=== PATIENT | male | born 1990 | race Caucasian/White ===

== ENCOUNTER 2020-07-10 15:27 | Emergency (ER) | payer MEDICAID, SELFPAY ==
[2020-07-10] VITALS (9 sets, daily range): BP systolic 97–136; BP diastolic 63–91; PULSE 53–89; RESP 18; TEMP 36.6–36.8; O2SAT 93–99; BMI 26.4
--- NOTE | 2020-07-10 15:28 | HMH.EDGENADL ---
ED Disposition Clinical Impression: Cellulitis Qualifiers: Site of cellulitis: extremity Site of cellulitis of extremity: lower extremity Laterality: right Qualified Code(s): L03.115 - Cellulitis of right lower limb Disposition: Left Against Medical Advice Condition on Discharge: Good Referrals: Christina Crow APRN [Primary Care Provider] - Time of Disposition: 17:48 - Critical Care Critical Care Time: No Attestation: On , the high probability of a clinically significant, sudden or life threatening deterioration of the following system(s) required my full and direct attention, intervention and personal management. The time I documented below is in addition to time spent performing reported procedures but includes the following listed in this critical care notation. Medical Decision Making - Medical Records Medical records reviewed: Yes: I reviewed the patient's medical records. - Ivan Inquiry Pt receiving controlled substance: No Vital Signs: 07/10/20 15:28 07/10/20 16:30 Temperature 98 F Temperature Source Oral Pulse Rate 65 Pulse Rate [Right Radial] 89 Respiratory Rate 18 Blood Pressure 119/64 Blood Pressure [Right Arm] 136/91 H Blood Pressure Mean 82 Blood Pressure Mean [Right Arm] 106 Blood Pressure Source [Right Arm] Automatic Cuff Blood Pressure Position [Right Arm] Sitting 02 Sat by Pulse Oximetry 98 95 Oxygen Delivery Method Room Air - Lab Data Lab results reviewed: Yes: I reviewed the patient's lab results. Lab Results 07/10/20 16:00: WBC 5.7, RBC 4.79, Hgb 15.5, Hct 44.0, MCV 91.8, MCH 32.3 H, MCHC 35.2, RDW 13.5, Plt Count 258, MPV 8.2, Neut % (Auto) 54.6, Lymph % (Auto) 28.6, [place] % (Auto) 9.3, Eos % (Auto) 6.7, Baso % (Auto) 0.8, Neut # (Auto) 3.1, Lymph # (Auto) 1.6, [place] # (Auto) 0.5, Eos # (Auto) 0.4, Baso # (Auto) 0.0 07/10/20 16:00: Sodium 136, Potassium 3.9, Chloride 105, Carbon Dioxide 26, Anion Gap 8.9, BUN 8 L, Creatinine 0.80, Estimated Creat Clear 175, Estimated GFR 114, Est GFR ( Amer) 138, Glucose 84, Calcium 9.8, Total Bilirubin 0.7, AST 155 H, ALT 131 H, Alkaline Phosphatase 137 H, Total Protein 8.2, Albumin 4.6, Globulin 3.6 H, Albumin/Globulin Ratio 1.3 07/10/20 16:00: Lactate 0.7 Result diagrams: 07/10/20 16:00 07/10/20 16:00 Orders (Tests/Meds): ED MEDICATIONS Generic Name Dose Route Start Last Admin Trade Name Freq PRN Reason Stop Dose Admin Piperacillin Sod/Tazobactam 100 mls @ 200 mls/hr 07/10/20 16:00 07/10/20 16:40 Sod 4.5 gm/ Sodium Chloride IV 07/24/20 15:59 200 mls/hr Q8H MORENO Administration Protocol Vancomycin HCl 1,500 mg/ 250 mls @ 125 mls/hr 07/10/20 17:45 Sodium Chloride IV 07/24/20 17:44 Q8H MOREON Protocol Miscellaneous 1 each 07/10/20 16:30 07/10/20 17:35 Vancomycin Consult Request * 08/09/20 16:29 1 each CONSULT PHARMACY M[facility]ENO Administration Discontinued Medications Generic Name Dose Route Start Last Admin Trade Name Freq PRN Reason Stop Dose Admin Vancomycin HCl 1,500 mg/ 250 mls @ 125 mls/hr 07/10/20 15:47 07/10/20 16:28 Sodium Chloride IV 07/10/20 17:46 Not Given ONCE ONE Protocol Vancomycin HCl 2,000 mg/ 250 mls @ 125 mls/hr 07/10/20 16:17 07/10/20 17:36 Sodium Chloride IV 07/10/20 18:16 Not Given ONCE ONE Protocol ORDERS Category Date Time Status Covid-19 Nasal PCR ([facility]) Routine Lab 07/10/20 16:25 Received Blood Culture Stat Micro 07/10/20 16:00 Received - US Data US Images: Lower Extremity ED US Reviewed: Yes: I have reviewed the patient's US results Preliminary Findings: Normal/NAD Medical Decision Narrative: 29yo M with significant cellulitis of the right lower extremity presents for evaluation. Patient's lower extremity exam is impressive for firmness, exquisite tenderness, decreased range of motion. Patient treated with antibiotics in the emergency department. Discussed transfer versus admission. Was able to locat
--- NOTE | 2020-07-10 15:52 | CA_ITS ---
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: CN Indications pain, swelling of right calf with redness, Vein Imaging CFV (R): compressive, spontaneous, phasic, augmentation FEM (R): compressive, spontaneous, phasic, augmentation POP (R): compressive, spontaneous, phasic, augmentation DFV (R): compressive, spontaneous, phasic, augmentation PTV (R): compressive, spontaneous, phasic, augmentation GSV (R): compressive, spontaneous, phasic, augmentation SSV (R): compressive, spontaneous, phasic, augmentation Peroneals (R):compressive, spontaneous, phasic, augmentation Findings Color flow duplex demonstrates no evidence of DVT of the following right lower extremity Vein:Common Femoral Vein, Femoral Vein, Popliteal Vein, Posterior Tibial Veins, Peroneal Veins, Deep Femoral Vein. Conclusion no evidence of DVT Electronically signed by : Adry Orantes, 07/14/2020 16:52:27
--- NOTE | 2020-07-10 16:04 | PC.NURSE ---
cv lab staff at
[2020-07-10 16:09] LABS: Basophils % 0.8 % (0.1-2.0); Eosinophils # 0.4 K/mm3 (0.0-0.4); Eosinophils % 6.7 % (0.1-12.0); Hemoglobin 15.5 g/dL (14.1-18.0); Lymphocytes # 1.6 K/mm3 (0.7-4.5); Lymphocytes % 28.6 % (10-50); Mean Corpuscular HGB Conc 35.2 g/dL (31.8-35.4); Mean Corpuscular Hemoglobin 32.3 pg (27.0-31.2); Mean Corpuscular Volume 91.8 fl (80-94); Mean Platelet Volume 8.2 fl (7.4-10.4); Monocytes # 0.5 K/mm3 (0.1-1.0); Monocytes % 9.3 % (1.7-9.3); Neutrophils # 3.1 K/mm3 (1.8-7.8); Neutrophils % 54.6 % (37.0-80.0); Platelet Count 258 K/mm3 (142-424); Red Blood Count 4.79 M/mm3 (4.60-6.20); Red Cell Distribution Width 13.5 % (11.5-17.5); White Blood Count 5.7 K/mm3 (4.8-10.8)
[2020-07-10 16:16] LABS: Lactic Acid 0.7 mmol/L (0.7-2.1)
[2020-07-10 16:17] LABS: Alanine Aminotransferase 131 U/L (12-78); Albumin Level 4.6 g/dl (3.5-5.0); Albumin/Globulin Ratio 1.3 (1.1-1.8); Alkaline Phosphatase 137 U/L (38-126); Anion Gap 8.9 mEq/L (5-15); Aspartate Amino Transferase 155 U/L (17-59); Bilirubin,Total 0.7 mg/dl (0.2-1.3); Blood Urea Nitrogen 8 mg/dl (9-20); Calcium 9.8 mg/dl (8.4-10.2); Carbon Dioxide 26 mmol/L (22.0-30.0); Chloride 105 mmol/L (98-107); Creatinine Clearance Estimated 175 mL/min (50-200); Estimated Glomerular Filt Rate 114 ml/min (>60); GFR (African American) 138 ML/MIN (>60); Globulin 3.6 g/dL (1.3-3.2); Glucose 84 mg/dl (74-100); Potassium 3.9 mmoL/L (3.5-5.1); Sodium 136 mmol/L (136-145); Total Protein,Serum 8.2 g/dl (6.3-8.2)
--- NOTE | 2020-07-10 16:17 | PC.NURSE ---
per sandra in pharmacy, start pt out Vancomycin 2g IV one time dose and call when pts labs are back and he will give further dosing
--- NOTE | 2020-07-10 17:27 | PC.NURSE ---
spoke with Isidro in pharmacy at this time r/t Vancomycin dosing, pt labs are now resulted. Isidro states to order Vancomycin 1500 mg IV Q8H and he will adjust dosing as needed in the morning. Told Isidro I have not yet given original dose order of Vancomycin 2g IV, states not to give it instead given Vancomycin 1500 mg IV and follow Q8H schedule.
--- NOTE | 2020-07-10 17:42 | PC.NURSE ---
pt reports he is not willing to stay to be admitted if he is not permitted to go outside and smoke. Offered pt a nicotine patch multiple time pt states that ain't gonna help me . Pt states he will stay to receive second antibiotic infusion. 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
--- NOTE | 2020-07-10 17:45 | PC.NURSE ---
consulted pharmacist again at this time r/t to Vancomycin dosing r/t pt is going to be leaving AMA and 1 infusion of Vancomycin. Isidro states to give pt Vancomycin 2g IV once since pt will not be getting it Q8H.
--- NOTE | 2020-07-10 18:45 | PC.NURSE ---
pt now states that he will agree to admission and stay ER MD and warehouse material handler notified.
--- NOTE | 2020-07-10 19:20 | PC.NURSE ---
shift change report given to jurgenrn
--- NOTE | 2020-07-10 20:20 | PC.NURSE ---
pt has keflex and septra at home and wishes to follow with dr wan in office this week
[2020-07-10 20:34] LABS: C-Reactive Protein 70.5 mg/L (0-4)
--- NOTE | 2020-07-10 20:42 | PC.NURSE ---
verbal instructions given to patient and family by Dr. Bennett
[2020-07-10 20:47] LABS: Erythrocyte Sedimentation Rate 13 mm/hr (0-15)
[2020-07-10 20:48] LABS: Procalcitonin 0.068 ng/mL (0.0-2.0)
== END 2020-07-10 21:05 | disposition left against medical advice (07) ==
LOC: ER 15:31 → 2ND 17:27
PROVIDERS: Emergency Provider Family Medicine; PCP Nurse Practitioner Family
DX: L03.115 Cellulitis of right lower limb (principal); F17.210 Nicotine dependence, cigarettes, uncomplicated; Z20.822 Contact with and (suspected) exposure to COVID-19
CPT/HCPCS: 80053; 83605; 84145; 85025; 85651; 86140; 87040; 93971; 96365; 99283; J2543; J3370; U0003

== ENCOUNTER 2021-07-04 18:54 | Emergency (ER) | payer OTHER, SELFPAY ==
[2021-07-04 18:55] VITALS: BP 114/72; PULSE 67; RESP 16; TEMP 36.7; O2SAT 99; BMI 25.7
--- NOTE | 2021-07-04 19:06 | XR_ITS ---
PROCEDURE INFORMATION: Exam: XR Lumbosacral Spine Exam date and time: 07/04/2021 7:33 PM Age: 30 years old Clinical indication: Injury or trauma; Other: Ran over by a horse; Work related; Blunt trauma (contusions or hematomas); Injury date: 07/04/21; Additional info: Pain, ran over by a horse this morning- lower back pain TECHNIQUE: Imaging protocol: XR of the lumbosacral spine. Views: 2 or 3 views. COMPARISON: No relevant prior studies available. FINDINGS: Bones/joints: Normal. No acute fracture. Normal alignment. Soft tissues: Unremarkable. IMPRESSION: No acute findings.
[2021-07-04 19:49] VITALS: BP 114/72; PULSE 67; RESP 16; TEMP 36.7; O2SAT 99; BMI 25.8
--- NOTE | 2021-07-04 19:56 | HMH.EDUTC ---
[facility] [place] Disposition Clinical Impression: Fall Qualifiers: Encounter type: initial encounter Qualified Code(s): W19.XXXA - Unspecified fall, initial encounter Low back pain Qualifiers: Chronicity: acute Back pain laterality: bilateral Sciatica presence: without sciatica Qualified Code(s): M54.50 - Low back pain, unspecified Disposition: Home, Self-Care Condition on Discharge: Good Instructions: Low Back Pain Additional Instructions: Go home and rest. It would be best if you rested tomorrow too. No heavy lifting. No twisting. Take the oral medications as directed. The muscle relaxer (cyclobenzaprine--Flexeril) will make you drowsy, so don't drive or operate heavy machinery after taking it. Follow up with your regular doctor. GO TO THE ER FOR ANY WORSENING SYMPTOMS OR CONCERN, ESPECIALLY BOWEL OR BLADDER ISSUES, SADDLE AREA NUMBNESS, FEVER, ETC Prescriptions: Ibuprofen [Ibuprofen 800mg Tablet] 800 mg PO Q8HP PRN #30 tab PRN Reason: Moderate Pain Transmission Status: Received by [facility] Cyclobenzaprine HCl [Cyclobenzaprine 10mg Tab] 10 mg PO BIDP PRN #20 tab PRN Reason: Muscle Spasm Transmission Status: Received by [facility] Referrals: Provider,Referral, MD [Primary Care Provider] - Forms: Work/School Release Time of Disposition: 20:47 Medical Decision Making - Medical Records Medical records reviewed: No: I reviewed the patient's medical records. - Ivan Inquiry Pt receiving controlled substance: No Vital Signs: 07/04/21 18:55 07/04/21 19:49 07/04/21 20:49 Temperature 98.1 F 98.1 F 98.1 F Temperature Source Oral Oral Pulse Rate 67 Pulse Rate [Left Radial] 67 67 Respiratory Rate 16 16 16 Blood Pressure 114/72 Blood Pressure [Left Arm] 114/72 114/72 Blood Pressure Mean [Left Arm] 86 86 Blood Pressure Source [Left Arm] Automatic Cuff Blood Pressure Position [Left Arm] Sitting 02 Sat by Pulse Oximetry 99 99 Oxygen Delivery Method Room Air [facility] [place] HPI - General Stated complaint: WC 07/04@0900 injured back Time Seen by Provider: 07/04/21 19:56 Mode of Arrival: Ambulatory Source of Information: Patient Limitations: No Limitations Description of Symptoms (Recalled from Triage Doc. by RN): pt states that while at work a horse ran into his back and knocked him off his feet HEENT Symptoms (Recalled from RN notes): No Resp Symptoms (Recalled from RN notes): No Skin Symptoms (Recalled from RN notes): No MS Symptoms (Recalled from RN notes): Yes Functional Status (Recalled from RN notes): wnl - History of Present Illness Provider Complaint: He states that he was knocked down by a horse today. He landed on his lower back. He has had lower back pain since then. He denies that he has any numbness. - Related Data Home Medications Medication Instructions Recorded Confirmed Buprenorphine HCl/Naloxone HCl 1 tab PO BID 07/10/20 07/10/20 [Buprenorphine-Nalox 8-2 mg Tab] Sulfamethoxazole/Trimethoprim 1 each PO BID 07/10/20 07/10/20 [Bactrim DS tablet] cephALEXin [cephALEXin 500mg 500 mg PO BID 07/10/20 07/10/20 capsule*] Previous Rx's Medication Instructions Recorded Cyclobenzaprine HCl 10 mg PO BIDP PRN #20 tab 07/04/21 [Cyclobenzaprine 10mg Tab] Ibuprofen [Ibuprofen 800mg 800 mg PO Q8HP PRN #30 tab 07/04/21 Tablet] Allergies Allergy/AdvReac Type Severity Reaction Status Date / Time No Known Allergies Allergy Verified 07/04/21 19:51 - Worker's Comp Is this a Worker's Comp case?: No [facility] History - Hepatitis A Screen Attestation statement:: This patient has been screened for Hepatitis A risk factors. I have reviewed the patient's past medical history: Yes Medical History: Reports:: Hepatitis Other Medical History: Reports: Anemia Amputation: No - Social History Smoking Status: Current some day smoker Tobacco Type: cigarettes # Packs/Day (cigarettes): 2 Alcohol Intake: never Substance Use Type:
[2021-07-04 20:49] VITALS: BP 114/72; PULSE 67; RESP 16; TEMP 36.7
== END 2021-07-04 20:52 | disposition home or self-care (01) ==
PROVIDERS: Emergency Provider Nurse Practitioner Family
DX: M54.50 Low back pain, unspecified (principal); W55.12XA Struck by horse, initial encounter; Y92.69 Other specified industrial and construction area as the place of occurrence of the external cause; Y99.0 Civilian activity done for income or pay; F17.210 Nicotine dependence, cigarettes, uncomplicated
CPT/HCPCS: 72100; 99213; G0463

== ENCOUNTER 2023-03-14 11:55 | Outpatient (CLI) | payer MEDICAID, SELFPAY ==
[2023-03-14 15:41] LABS: Amphetamine/Metha Screen,Urine Negative ng/ml (<1000); Barbiturates Screen,Urine Negative ng/ml (<200); Benzodiazepines Screen,Urine Negative ng/ml (<200); Cannabinoid Screen,Urine Positive ng/ml (<50); Cocaine Screen,Urine Negative ng/ml (<300); Methadone Screen,Urine Negative ng/ml (<300); Opiate Screen,Urine Negative ng/ml (<300); Phencyclidine Screen,Urine Negative ng/ml (<25)
[2023-03-20 06:55] LABS: Alprazolam Negative (Cutoff=100); Benzodiazepines Positive ng/mL (Cutoff=100); Clonazepam Positive (.); Clonazepam Confirm 157 ng/mL (Cutoff=100); Flurazepam Negative (Cutoff=100); Lorazepam Negative (Cutoff=100); Midazolam Negative (Cutoff=100); Temazepam Negative (Cutoff=100); Triazolam Negative (Cutoff=100)
== END 2023-03-14 23:59 ==
LOC: LAB.DROPOF 11:56
PROVIDERS: PCP Physician Assistant; Visit Provider Physician Assistant
DX: Z79.899 Other long term (current) drug therapy (principal); F41.9 Anxiety disorder, unspecified; F90.9 Attention-deficit hyperactivity disorder, unspecified type
CPT/HCPCS: 80307; 80346

== ENCOUNTER 2023-03-22 11:16 | Emergency (ER) | payer MEDICAID, SELFPAY ==
[2023-03-22 11:19] VITALS: BP 132/89; PULSE 64; RESP 16; TEMP 36.7; O2SAT 99; BMI 27.4
--- NOTE | 2023-03-22 11:37 | ED_ITS ---
Discharge Plan Disposition Patient Disposition: Left Against Medical Advice Prescriptions Prescriptions: No Action clonazepam [Klonopin] 0.5 mg tablet 0.5 mg PO DAILY PRN (Reason: anxiety) Qty: 30 0RF terbinafine HCl 250 mg tablet 250 mg PO DAILY Qty: 30 2RF butenafine 1 % cream 1 applic topical BID Qty: 90 1RF mirtazapine 15 mg tablet See Rx Instructions .ROUTE .COMPLEX Qty: 30 1RF Dose Instruction: TAKE 1 TABLET BY MOUTH DAILY Rx Instructions: TAKE 1 TABLET BY MOUTH DAILY Vraylar 3 mg capsule 3 mg PO DAILY Qty: 30 2RF olanzapine [Zyprexa] 5 mg tablet 5 mg PO HS Qty: 30 2RF buprenorphine-naloxone 1 EACH tablet, sublingual 1 tab PO BID Patient Comments: 2 TABLETS BY MOUTH ONCE DAILY Referrals Follow up/Referrals: Demetria Joyner PA [Primary Care Provider] - See instructions Clinical Impressions Clinical Impression: Left against medical advice Discharge ED Provider: Jeremías Mckay Adult HPI General Chief complaint: Extremity Injury, Lower Stated complaint: AO 2 OR 3 weeks ago and left leg and ankle pain Time Seen by Provider: 03/22/23 11:37 Mode of Arrival: Ambulatory Source of Information: Patient Limitations: No Limitations Description of Symptoms (Recalled from ER Triage Doc. by RN): Patient reports falling approx 3 weeks ago and feeling as if he might have pulled his left groin muscle. Since then the patient has had pain and swelling down his entire left leg. History of Present Illness HPI narrative: Patient presents with left lower extremity swelling. This occurred approximately 2 weeks ago, approximately 3 weeks ago he had a fall from standing while hunting. He twisted his leg. He was ambulatory at the time. He denied any significant pain at that time. He denied any open injury at that time. He has subsequently developed some difficulty with ambulation however is still able to ambulate. The swelling in his left lower extremity reportedly comes and goes throughout the day, he has had no fevers or chills. He states he has had similar symptoms in the affected extremity before in the setting of infection. He denies any recreational drug use. He reports he is on Suboxone. He reports that his pain is most pronounced in the posterior aspect of his left thigh. He denies any significant focal knee pain. The swelling did not start in 1 particular spot. It reportedly was gradual in onset. He denies any numbness or tingling at this time. No previous therapies. Swelling has not rapidly progressed. Denies any personal or family history of bleeding or clotting disorder. No acute changes today, patient presents due to ongoing nature of symptoms. Related Data Home Medications Medication Instructions Recorded Confirmed buprenorphine 8 mg-naloxone 2 mg 1 tab PO BID addiction 07/10/20 03/14/23 sublingual tablet Previous Rx's Medication Instructions Recorded butenafine 1 % topical cream 1 applic topical BID #90 grams 11/14/22 terbinafine HCl 250 mg tablet 250 mg PO DAILY #30 tabs 11/14/22 mirtazapine 15 mg tablet See Rx Instructions .Route 12/14/22 .COMPLEX #30 tabs clonazepam 0.5 mg tablet (Klonopin) 0.5 mg PO DAILY PRN anxiety #30 03/14/23 tabs cariprazine 3 mg capsule (Vraylar) 3 mg PO DAILY #30 caps 03/15/23 olanzapine 5 mg tablet (Zyprexa) 5 mg PO HS #30 tabs 03/15/23 Allergies Allergy/AdvReac Type Severity Reaction Status Date / Time No Known Allergies Allergy Verified 03/14/23 10:06 [facility] Disclaimer: The information contained in this section may have been updated after the car godinez was seen, as this information can be updated by other users. Medical History No pertinent past medical history Surgical History Fracture of tibia with fibula, left, open Bull riding injury, open fracture, 6 screws, 1 franklin placed Social History Smoking Status: Current every day smoker tobacco type: cigarettes packs per day: 2 and smokeless tobacco alcohol intake: never substance use type: former substance user current occupational status: other Travel in the last 8 weeks: None ROS Obtained: Yes Systems reviewed as appropriate & no additional complaints except as documented As per HPI Physical Exam General General appearance: alert and in no apparent distress Head Head exam: atraumatic and normocephalic Eye Eye exam: Present normal appearance Neck Neck exam: Present normal inspection Chest Chest inspection: Present normal inspection and symmetric chest wall rise Respiratory Respiratory exam: Present normal lung sounds bilaterally; Absent respiratory distress Cardiovascular Cardiovascular exam: Present regular rate and normal rhythm Abdominal Exam Abdominal exam: Present soft Extremities Exam Extremities exam: Present other (Left lower extremity relative erythema, trace edema of foot, erythema extends to thigh, not well-demarcated, compartments of thigh, leg, foot soft, patient is distally neurovascularly intact. No pain out of proportion. No crepitus. No bony tenderness to palpation.) Neurological Exam Neurological exam: Present alert and oriented X3 Psychiatric Psychiatric exam: Present normal affect and normal mood Skin Skin exam: Present warm and dry Medical Decision Making Medical Records Medical records reviewed: Yes I reviewed the patient's medical records. Ivan Inquiry Pt receiving controlled substance: No Vital Signs: 03/22/23 11:19 03/22/23 11:41 03/22/23 12:24 Temperature 98.1 F Temperature Source Oral Pulse Rate 57 L 56 L Pulse Rate [Radial] 64 Respiratory Rate 16 Blood Pressure 131/71 114/82 Blood Pressure [Right Arm] 132/89 Blood Pressure Mean Blood Pressure Mean [Right Arm] 103 Blood Pressure Source [Right Arm] Automatic Cuff Blood Pressure Position [Right Arm] Sitting 02 Sat by Pulse Oximetry 99 97 97 Oxygen Delivery Method Room Air Room Air 03/22/23 13:00 03/22/23 13:30 03/22/23 14:01 Temperature 98.0 F Temperature Source Pulse Rate 48 L 54 L Pulse Rate [Radial] Respiratory Rate 20 Blood Pressure 114/78 112/70 116/76 Blood Pressure [Right Arm] Blood Pressure Mean 85 Blood Pressure Mean [Right Arm] Blood Pressure Source [Right Arm] Blood Pressure Position [Right Arm] 02 Sat by Pulse Oximetry 95 95 Oxygen Delivery Method Room Air Room Air Lab Data Lab Results 03/22/23 12:16: WBC 5.5, RBC 5.50, Hgb 17.4, Hct 52.6 H, MCV 95.6 H, MCH 31.7 H, MCHC 33.2, RDW 15.9, Plt Count 276, MPV 7.3 L, Neut % (Auto) 60.9, Lymph % (Auto) 24.1, [place] % (Auto) 5.1, Eos % (Auto) 9.3, Baso % (Auto) 0.5, Neut # (Auto) 3.3, Lymph # (Auto) 1.3, [place] # (Auto) 0.3, Eos # (Auto) 0.5 H, Baso # (Auto) 0.0, ESR 17 H, Sodium 138, Potassium 4.5, Chloride 101, Carbon Dioxide 30, Anion Gap 11.5, BUN 6 L, Creatinine 0.70, Estimated Creat Clear 202, Estimated GFR 131, Est GFR ( Amer) 158, Glucose 111 H, Calcium 10.2, Total Bilirubin 0.5, AST 127 H, ALT 145 H, Alkaline Phosphatase 115, Total Creatine Kinase 4743 H*, Total Protein 7.9, Albumin 4.5, Globulin 3.4 H, Albumin/Globulin Ratio 1.3 03/22/23 12:16 03/22/23 12:16 Orders (Tests/Meds): ORDERS Category Date Time Status XR femur LT 2V Stat Exams 03/22/23 11:44 Completed XR hip LT 2-3V w/pelvis Stat Exams 03/22/23 11:44 Completed XR knee LT 2V Stat Exams 03/22/23 11:44 Completed CBC w/Auto Diff [Complete Blood Count Auto Diff] Stat Lab 03/22/23 12:16 Completed CK [Creatine Kinase] Stat Lab 03/22/23 12:16 Completed CMP [Comprehensive Metabolic Panel] Stat Lab 03/22/23 12:16 Completed ESR [Erythrocyte Sedimentation Rate] Stat Lab 03/22/23 12:16 Completed CA venous doppler LE LT Stat Y 03/22/23 11:44 Completed Medical Decision Narrative: Patient with history and exam per above presenting for evaluation of left lower extremity pain, swelling Diagnoses considered include Cellulitis, abscess, necrotizing soft tissue i nfection, lymphangitis, erysipelas, osteomyelitis, septic arthritis, deep vein thrombosis ED workup and treatment included: ORDERS Category Date Time Status XR femur LT 2V Stat Exams 03/22/23 11:44 Completed XR hip LT 2-3V w/pelvis Stat Exams 03/22/23 11:44 Completed XR knee LT 2V Stat Exams 03/22/23 11:44 Completed CBC w/Auto Diff [Complete Blood Count Auto Diff] Stat Lab 03/22/23 12:16 Completed CK [Creatine Kinase] Stat Lab 03/22/23 12:16 Completed CMP [Comprehensive Metabolic Panel] Stat Lab 03/22/23 12:16 Completed ESR [Erythrocyte Sedimentation Rate] Stat Lab 03/22/23 12:16 Completed CA venous doppler LE LT Stat Y 03/22/23 11:44 Completed Labs were independently interpreted by me, significant for no leukocytosis, c reatinine within normal limits, AST 127, ALT 145, CK of note 4743, potassium within normal limits, ESR 17 Imaging was independently visualized and interpreted by me, significant for no acute osseous abnormality I discussed, upon repeat evaluation, my clinical impression at this time with the patient. I again reassessed patient's erythema, again palpated compartments. My concern at this time is for rhabdomyolysis, either acute or chronic. Necrotizing soft tissue infection is lower on the differential but remains a possibility. This is the same for occult fracture. I discussed the patient would benefit from further workup and treatment at this time including repeat drop CK to evaluate for trend of this lab. Patient may also require CT imaging. Patient is requesting discharge at this time AGAINST MEDICAL ADVICE. I discussed the risks of being discharged at this time including disability, , particularly secondary to necrotizing soft tissue infection, electrolyte abnormality and arrhythmia from rhabdomyolysis which could cause sudden cardiac . Patient expressed to me and to nursing staff to again had a discussion with him about the same risks and understanding in his own words about these risks and still request to be discharged AGAINST MEDICAL ADVICE. He is clin ically sober, deemed to have capacity on multiple assessments to understand these risks and these were additionally communicated with family member at bedside. Patient was strongly encouraged to return if he should change his mind about further workup. He elects to leave AGAINST MEDICAL ADVICE at this time. Again return precautions were given. Critical Care Critical Care Time Critical Care Time: No
[2023-03-22 11:41] VITALS: BP 131/71; PULSE 57; O2SAT 97
--- NOTE | 2023-03-22 11:44 | XR_ITS ---
FINAL REPORT CLINICAL HISTORY: Left knee pain, swelling after fall 3 weeks ago COMPARISON: None FINDINGS: Two views of the left knee were obtained. There are postoperative changes in the tibia. There is no evidence of fracture or dislocation. The bony alignment is normal. The joint spaces are preserved. There is no evidence of joint effusion. No localized soft tissue abnormality is seen. There is no evidence of foreign body. IMPRESSION: No acute abnormality identified. Reviewed, Interpreted and Dictated by Andrea Troncoso III, MD Transcribed by Tiffanie Medrano Authenticated and [facility]
--- NOTE | 2023-03-22 11:44 | XR_ITS ---
FINAL REPORT CLINICAL HISTORY: Left hip pain, swelling after fall 3 weeks ago COMPARISON: None FINDINGS: LEFT HIP: Three-view of the left hip including an AP view of the pelvis demonstrate no acute fracture or dislocation. The joint spaces appear normal. The visualized bony structures are well aligned. No soft tissue abnormality is seen. IMPRESSION: No acute bony abnormality. Reviewed, Interpreted and Dictated by Andrea Troncoso III, MD Transcribed by Tiffanie Medrano Authenticated and [facility]
--- NOTE | 2023-03-22 11:44 | XR_ITS ---
FINAL REPORT CLINICAL HISTORY: Left upper leg pain, swelling after fall 3 weeks ago COMPARISON: None FINDINGS: Two views of the left femur were obtained. There are postoperative changes in the tibia. There is no acute fracture or dislocation. Visualized joint spaces are intact. There is no acute soft tissue abnormality. IMPRESSION: No acute process. Reviewed, Interpreted and Dictated by Andrea Troncoso III, MD Transcribed by Tiffanie Medrano Authenticated and [facility]
--- NOTE | 2023-03-22 11:44 | CA_ITS ---
FINAL REPORT TECHNIQUE: Color Doppler, duplex Doppler and compression sonography of the left lower extremity deep venous systems was performed. CLINICAL HISTORY: LLE pain, swelling FINDINGS: There is no evidence of deep venous thrombosis from the level of the groin to the calf. The veins are patent and compressible. IMPRESSION: No evidence of deep venous thrombosis left lower extremity. Reviewed, Interpreted and Dictated by Andrea Troncoso III, MD Transcribed by Elizabeth Hall Authenticated and [facility]
[2023-03-22 12:22] LABS: Basophils % 0.5 % (0.1-2.0); Eosinophils # 0.5 K/mm3 (0.0-0.4); Eosinophils % 9.3 % (0.1-12.0); Hematocrit 52.6 % (42.0-52.0); Hemoglobin 17.4 g/dL (14.1-18.0); Lymphocytes # 1.3 K/mm3 (0.7-4.5); Lymphocytes % 24.1 % (10-50); Mean Corpuscular HGB Conc 33.2 g/dL (31.8-35.4); Mean Corpuscular Hemoglobin 31.7 pg (27.0-31.2); Mean Corpuscular Volume 95.6 fl (80-94); Mean Platelet Volume 7.3 fl (7.4-10.4); Monocytes # 0.3 K/mm3 (0.1-1.0); Monocytes % 5.1 % (1.7-9.3); Neutrophils # 3.3 K/mm3 (1.8-7.8); Neutrophils % 60.9 % (37.0-80.0); Platelet Count 276 K/mm3 (142-424); Red Cell Distribution Width 15.9 % (11.5-17.5); White Blood Count 5.5 K/mm3 (4.8-10.8)
[2023-03-22 12:24] VITALS: BP 114/82; PULSE 56; O2SAT 97
[2023-03-22 12:44] LABS: Chloride 101 mmol/L (98-107); Potassium 4.5 mmoL/L (3.5-5.1); Sodium 138 mmol/L (136-145)
[2023-03-22 12:46] LABS: Alanine Aminotransferase 145 U/L (12-78); Aspartate Amino Transferase 127 U/L (17-59); Blood Urea Nitrogen 6 mg/dl (9-20); Creatinine Clearance Estimated 202 mL/min (50-200); Estimated Glomerular Filt Rate 131 ml/min (>60); GFR (African American) 158 ML/MIN (>60)
[2023-03-22 12:47] LABS: Albumin Level 4.5 g/dl (3.5-5.0); Albumin/Globulin Ratio 1.3 (1.1-1.8); Alkaline Phosphatase 115 U/L (38-126); Anion Gap 11.5 mEq/L (5-15); Bilirubin,Total 0.5 mg/dl (0.2-1.3); Calcium 10.2 mg/dl (8.4-10.2); Carbon Dioxide 30 mmol/L (22.0-30.0); Globulin 3.4 g/dL (1.3-3.2); Glucose 111 mg/dl (74-100); Total Protein,Serum 7.9 g/dl (6.3-8.2)
--- NOTE | 2023-03-22 12:53 | PC.NURSE ---
vascular at bedside
[2023-03-22 13:00] VITALS: BP 114/78; O2SAT 95
[2023-03-22 13:30] VITALS: BP 112/70; PULSE 48; O2SAT 95
[2023-03-22 13:34] LABS: Creatine Kinase 4743 U/L (55-170)
--- NOTE | 2023-03-22 13:44 | PC.NURSE ---
DR BLUM AT BEDSIDE TO UPDATE PT
--- NOTE | 2023-03-22 13:59 | PC.NURSE ---
Nurse went into patient room and explained to patient risk and benefits of staying or leaving AMA and what options we could provide him with here at [facility]. Pt still refused to stay here for further testing and signed AMA form. pt mother at bedside and witnessed everything and both verbalized understanding
[2023-03-22 14:01] VITALS: BP 116/76; PULSE 54; RESP 20; TEMP 36.7; O2SAT 95
[2023-03-22 15:03] LABS: Erythrocyte Sedimentation Rate 17 mm/hr (0-15)
== END 2023-03-22 14:05 | disposition left against medical advice (07) ==
PROVIDERS: Emergency Provider Emergency Medicine; PCP Physician Assistant
DX: M79.605 Pain in left leg (principal); M25.572 Pain in left ankle and joints of left foot; R22.42 Localized swelling, mass and lump, left lower limb; F17.210 Nicotine dependence, cigarettes, uncomplicated; W18.30XA Fall on same level, unspecified, initial encounter
CPT/HCPCS: 73502; 73552; 73560; 80053; 82550; 85025; 85651; 93971; 99285

== ENCOUNTER 2023-03-29 11:57 | Emergency (ER) | payer MEDICAID, SELFPAY ==
[2023-03-29] VITALS (7 sets, daily range): BP systolic 114–132; BP diastolic 75–87; PULSE 51–70; RESP 18–19; TEMP 36.7; O2SAT 95–99; BMI 27.0
--- NOTE | 2023-03-29 12:31 | XR_ITS ---
FINAL REPORT CLINICAL HISTORY: LLE swelling and pain after fall COMPARISON: None FINDINGS: LEFT ANKLE Three views demonstrate no acute fracture or dislocation. IM franklin is noted in the distal tibia. The visualized joint spaces are normally aligned. The ankle mortise is intact. The soft tissues are unremarkable. IMPRESSION: No acute bony abnormality. Reviewed, Interpreted and Dictated by Zackery Jeong MD Transcribed by Tiffanie Medrano Authenticated and [facility]
--- NOTE | 2023-03-29 12:31 | XR_ITS ---
FINAL REPORT CLINICAL HISTORY: LLE swelling and pain after fall COMPARISON: None FINDINGS: Two views of the left tibia/fibula were obtained. A tibial IM franklin secures the healed fracture deformity of the distal tibia. There is no acute fracture or dislocation. The joint spaces are intact. There is no soft tissue abnormality. IMPRESSION: Postoperative changes without acute bony abnormality. Reviewed, Interpreted and Dictated by Zackery Jeong MD Transcribed by Tiffanie Medrano Authenticated and [facility]
--- NOTE | 2023-03-29 12:33 | XR_ITS ---
FINAL REPORT CLINICAL HISTORY: fall, swelling and pain left foot COMPARISON: None FINDINGS: LEFT FOOT Three views of the left foot demonstrate no acute fracture or dislocation. The visualized joint spaces are normally aligned. There is soft tissue swelling over the dorsum of the foot measuring approximately 2.2 cm. IMPRESSION: Soft tissue swelling without acute bony abnormality. Reviewed, Interpreted and Dictated by Zackery Jeong MD Transcribed by Tiffanie Medrano Authenticated and [facility]
[2023-03-29 12:36] LABS: Basophils # 0.1 K/mm3 (0-0.2); Basophils % 0.9 % (0.1-2.0); Eosinophils # 0.5 K/mm3 (0.0-0.4); Eosinophils % 8.6 % (0.1-12.0); Hematocrit 48.6 % (42.0-52.0); Hemoglobin 16.1 g/dL (14.1-18.0); Lymphocytes # 1.2 K/mm3 (0.7-4.5); Mean Corpuscular HGB Conc 33.1 g/dL (31.8-35.4); Mean Corpuscular Hemoglobin 31.5 pg (27.0-31.2); Mean Corpuscular Volume 95.2 fl (80-94); Mean Platelet Volume 7.5 fl (7.4-10.4); Monocytes # 0.4 K/mm3 (0.1-1.0); Monocytes % 6.5 % (1.7-9.3); Neutrophils # 3.5 K/mm3 (1.8-7.8); Neutrophils % 62.1 % (37.0-80.0); Platelet Count 244 K/mm3 (142-424); Red Blood Count 5.11 M/mm3 (4.60-6.20); Red Cell Distribution Width 15.8 % (11.5-17.5); White Blood Count 5.6 K/mm3 (4.8-10.8)
[2023-03-29] MEDS: KETOROLAC 30MG/ML VIAL 15 MG IV (12:37)
[2023-03-29] MEDS: ACETAMINOPHEN 1,000MG/100ML VIAL 1000 MG IV (12:37)
[2023-03-29] MEDS: LACTATED RINGERS 1000ML 1,000 ML 999 ML IV (12:38)
[2023-03-29 12:41] LABS: Chloride 103 mmol/L (98-107)
[2023-03-29 12:42] LABS: Sodium 138 mmol/L (136-145)
[2023-03-29 12:44] LABS: Alanine Aminotransferase 102 U/L (12-78); Alkaline Phosphatase 117 U/L (38-126); Aspartate Amino Transferase 145 U/L (17-59); Bilirubin,Total 0.5 mg/dl (0.2-1.3); Blood Urea Nitrogen 5 mg/dl (9-20); Carbon Dioxide 32 mmol/L (22.0-30.0); Creatinine Clearance Estimated 199 mL/min (50-200); Estimated Glomerular Filt Rate 131 ml/min (>60); GFR (African American) 158 ML/MIN (>60)
[2023-03-29 12:45] LABS: Albumin/Globulin Ratio 1.3 (1.1-1.8); Calcium 9.6 mg/dl (8.4-10.2); Globulin 3.2 g/dL (1.3-3.2); Glucose 107 mg/dl (74-100); Total Protein,Serum 7.2 g/dl (6.3-8.2)
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
[2023-03-29 13:17] LABS: Lactic Acid 1.4 mmol/L (0.7-2.1)
[2023-03-29] MEDS: LIDOCAINE 1% 20ML MDV 20 ML SQ (13:18)
[2023-03-29 13:34] LABS: Creatine Kinase 6172 U/L (55-170)
--- NOTE | 2023-03-29 13:58 | PC.NURSE ---
ER MD at bedside for pressure check in compartment of patient leg, test was positive and pagekerrie per ER MD
--- NOTE | 2023-03-29 14:13 | PC.NURSE ---
PT PUT IN GOWN WITH NO SKIDS SOCKS, MOM AT BS
[2023-03-29] MEDS: NICOTINE 21MG/24HR PATCH 21 MG TD (14:17)
--- NOTE | 2023-03-29 14:19 | PC.NURSE ---
called [facility] for transfer Dr Nolasco speaking with them at this time
--- NOTE | 2023-03-29 14:40 | PC.NURSE ---
CAlled report to [facility] [employer] Morrow
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
--- NOTE | 2023-03-29 15:09 | PC.NURSE ---
gave verbal report to EMS at bedside for ground transfer to
== END 2023-03-29 15:11 | disposition short-term general hospital (02) ==
PROVIDERS: Emergency Provider Emergency Medicine; PCP Physician Assistant
DX: M62.82 Rhabdomyolysis (principal); M79.A22 Nontraumatic compartment syndrome of left lower extremity; F17.210 Nicotine dependence, cigarettes, uncomplicated
CPT/HCPCS: 73590; 73610; 73630; 80053; 82550; 83605; 85025; 96361; 96374; 96375; 99291; J0131

== ENCOUNTER 2023-04-03 07:54 | Outpatient (CLI) | payer MEDICAID, SELFPAY ==
--- NOTE | 2023-04-03 08:21 | CT_ITS ---
FINAL REPORT CLINICAL HISTORY: left lower leg pain after injury, elevated CK patient states he fell about a week ago and pain started in upper leg and now is in lower leg (mid leg), leg and ankle also visibly swollen FINDINGS: CT LEFT LOWER EXTREMITY WITHOUT CONTRAST Technique: Axial images through the left lower extremity were performed by computed tomography. Sagittal and coronal reconstruction images were performed. This study was performed with techniques to keep radiation doses as low as reasonably achievable (ALARA). Individualized dose reduction techniques using automated exposure control or adjustment of mA and/or kV according to the patient's size were employed. Intramedullary franklin in the tibia with proximal and distal interlocking screws. No evidence of hardware complication. No acute fracture. Nonspecific diffuse subcutaneous edema. No loculated fluid collection. IMPRESSION: No acute process. Reviewed, Interpreted and Dictated by Zenaida Montalvo MD Transcribed by Iggy Chaudhary Authenticated and [facility]
== END 2023-04-03 23:59 ==
PROVIDERS: PCP Physician Assistant; Visit Provider Physician Assistant
DX: M79.605 Pain in left leg (principal)
CPT/HCPCS: 73700

== ENCOUNTER 2023-04-06 09:46 | Outpatient (CLI) | payer MEDICAID, SELFPAY ==
--- NOTE | 2023-04-06 09:46 | MR_ITS ---
FINAL REPORT CLINICAL HISTORY: left knee pain and instability s/p fall FINDINGS: MR RIGHT HIP TECHNIQUE: Multiplanar MR without gadolinium enhancement. FINDINGS: ARTICULAR CARTILAGE: No focal defects. MARROW SIGNAL: There is hardware artifact noted to be related to prior ORIF. There is no fracture or contusion. JOINT FLUID: Physiologic quantity. TENDONS: Patellar and quadriceps tendons are unremarkable. ADJACENT SOFT TISSUES: There is significant edema within the thigh musculature, greatest in the vastus lateralis. More proximal soft tissue injury not excluded. IMPRESSION: No meniscal or ligamentous injury. Intramuscular edema of the distal thigh. Consider dedicated MRI of the thigh soft tissues for further evaluation. Reviewed, Interpreted and Dictated by Zenaida Montalvo MD Transcribed by Halima James Authenticated and [facility]
== END 2023-04-06 23:59 ==
LOC: RAD 09:46
PROVIDERS: PCP Physician Assistant; Visit Provider Physician Assistant
DX: M25.562 Pain in left knee (principal)
CPT/HCPCS: 73721

== ENCOUNTER 2023-04-12 10:27 | Outpatient (CLI) | payer MEDICAID, SELFPAY ==
[2023-04-12 11:19] LABS: Chloride 107 mmol/L (98-107)
[2023-04-12 11:20] LABS: Potassium 4.2 mmoL/L (3.5-5.1); Sodium 138 mmol/L (136-145)
[2023-04-12 11:22] LABS: Alanine Aminotransferase 72 U/L (12-78); Alkaline Phosphatase 104 U/L (38-126); Anion Gap 8.2 mEq/L (5-15); Aspartate Amino Transferase 74 U/L (17-59); Bilirubin,Total 0.3 mg/dl (0.2-1.3); Blood Urea Nitrogen 8 mg/dl (9-20); Carbon Dioxide 27 mmol/L (22.0-30.0); Estimated Glomerular Filt Rate 131 ml/min (>60); GFR (African American) 158 ML/MIN (>60)
[2023-04-12 11:23] LABS: Albumin Level 4.1 g/dl (3.5-5.0); Albumin/Globulin Ratio 1.4 (1.1-1.8); Calcium 9.7 mg/dl (8.4-10.2); Chol/HDL Ratio 7.3 (1-3.5); Cholesterol 198 mg/dl (140-200); Globulin 2.9 g/dL (1.3-3.2); Glucose 88 mg/dl (74-100); HDL Cholesterol 27 mg/dl (40-60); Triglycerides 356 mg/dl (30-150); VLDL Cholesterol 71 mg/dL (0-40)
[2023-04-12 11:32] LABS: Creatine Kinase 2768 U/L (55-170)
[2023-04-12 11:33] LABS: C-Reactive Protein 15.3 mg/L (0-4)
[2023-04-12 11:34] LABS: Direct LDL Cholesterol 108.31 mg/dL (100-129)
[2023-04-12 11:35] LABS: Total Iron Binding Capacity 377 ug/dL (261-462)
[2023-04-12 11:45] LABS: Basophils % 0.3 % (0.1-2.0); Eosinophils # 0.5 K/mm3 (0.0-0.4); Eosinophils % 9.9 % (0.1-12.0); Hematocrit 44.2 % (42.0-52.0); Hemoglobin 14.6 g/dL (14.1-18.0); Lymphocytes # 1.5 K/mm3 (0.7-4.5); Lymphocytes % 27.5 % (10-50); Mean Corpuscular Hemoglobin 30.6 pg (27.0-31.2); Mean Corpuscular Volume 92.8 fl (80-94); Mean Platelet Volume 6.9 fl (7.4-10.4); Monocytes # 0.3 K/mm3 (0.1-1.0); Monocytes % 5.5 % (1.7-9.3); Neutrophils # 3.1 K/mm3 (1.8-7.8); Neutrophils % 56.8 % (37.0-80.0); Platelet Count 289 K/mm3 (142-424); Red Blood Count 4.76 M/mm3 (4.60-6.20); Red Cell Distribution Width 15.7 % (11.5-17.5); White Blood Count 5.4 K/mm3 (4.8-10.8)
[2023-04-12 11:52] LABS: 25-OH Vitamin D, Total < 12.8 ng/mL (30-100)
[2023-04-12 11:59] LABS: Thyroid Stimulating Hormone 1.77 uIU/mL (0.465-4.68)
[2023-04-12 12:03] LABS: Ferritin 40.8 ng/ml (17.9-464)
[2023-04-12 13:36] LABS: Erythrocyte Sedimentation Rate 18 mm/hr (0-15)
[2023-04-12 14:00] LABS: Vitamin B12 169 pg/mL (239-931)
[2023-04-13 13:09] LABS: Anti-Centromere B Antibodies <0.2 AI (0.0-0.9); Anti-Cyclic Citrullinated Pept 6 units (0-19); Anti-DNA (DS) Ab Qn 3 IU/mL (0-9); Anti-Jo-1 <0.2 AI (0.0-0.9); Anti-Smith Antibody <0.2 AI (0.0-0.9); Antichromatin Antibodies <0.2 AI (0.0-0.9); Antiscleroderma-70 Antibodies <0.2 AI (0.0-0.9); RNP Antibodies <0.2 AI (0.0-0.9); Sjogren's Anti-SS-A 7.6 AI (0.0-0.9); Sjogren's Anti-SS-B <0.2 AI (0.0-0.9)
[2023-04-13 13:11] LABS: RA Latex Turbid. <10.0 IU/mL (<14.0)
[2023-04-13 14:16] LABS: CK-BB 0 % (0); CK-MB 3 % (0-3); CK-MM 88 % (97-100); Creatine Kinase,Total,Serum 2686 U/L (49-439); Macro Type 1 9 % (Not Observed); Macro Type 2 0 % (Not Observed)
[2023-04-14 19:08] LABS: HBV IU/mL HBV DNA not detected IU/mL (.)
[2023-04-23 14:20] LABS: Homocyst(e)ine 32.4
[2023-04-23 14:21] LABS: Antithrombin Activity,Plasma 95; Factor VIII Activity 74; Protein C Activity 96; Protein S Antigen,Free 136
[2023-04-23 14:22] LABS: APTT 28.6
[2023-04-23 14:23] LABS: Activated Protein C Resist 2.3
[2023-04-23 14:24] LABS: Anti-Cardiolipin Antibody IgG <10; Hexagonal Phase Phospholipid 6
[2023-04-23 14:25] LABS: Anti-Cardiolipin Antibody IgM <10
[2023-04-23 14:26] LABS: Beta-2 Glycoprotein I Ab, IgA <10; Beta-2 Glycoprotein I Ab, IgG <10; Beta-2 Glycoprotein I Ab, IgM <10
== END 2023-04-12 23:59 ==
LOC: LAB 10:28
PROVIDERS: PCP Physician Assistant; Visit Provider Physician Assistant
DX: M62.82 Rhabdomyolysis (principal); R60.0 Localized edema; R74.8 Abnormal levels of other serum enzymes
CPT/HCPCS: 36415; 80053; 80061; 82306; 82550; 82552; 82607; 82728; 83090; 83550; 84443; 85025; 85240; 85300; 85303; 85306; 85307; 85598; 85613; 85651; 85730; 86140; 86146; 86147; 86200; 86225; 86235; 86431; 87517; 87522

== ENCOUNTER 2023-05-01 14:00 | Outpatient (RCR) | payer MEDICAID, SELFPAY ==
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
== END 2023-05-01 15:30 | disposition home or self-care (01) ==
LOC: PT 14:00
PROVIDERS: PCP Physician Assistant; Visit Provider Orthopaedic Surgery
DX: R22.42 Localized swelling, mass and lump, left lower limb (principal)
CPT/HCPCS: 97110; 97140; 97163

== ENCOUNTER 2023-05-31 08:53 | Outpatient (CLI) | payer MEDICAID, SELFPAY ==
--- NOTE | 2023-05-31 09:03 | MR_ITS ---
FINAL REPORT CLINICAL HISTORY: INFLAMMATORY MYOPATHY. SWELLING LEFT LEG 3-4MONTHS. SENSITIVE TO TOUCH. NO INJURY OR TRAUMA COMPARISON: none FINDINGS: Multiplanar MR imaging of the left femur was performed without contrast. The bony structures are intact without evidence of fracture, bone bruise or marrow edema. There is rather extensive abnormal signal throughout the vastus medialis best seen on images 5-20. There is also mild abnormal signal seen within the distal semimembranosus muscle. There is minimal abnormal signal of the vastus lateralis and biceps femoris peripherally. There are no loculated fluid collections. IMPRESSION: Abnormal signal of the vastus medialis, semimembranosus, vastus lateralis, and biceps femoris which is nonspecific but may be related to inflammatory myositis. The vastus medialis is preferentially affected. Reviewed, Interpreted and Dictated by Zackery Jeong MD Transcribed by Tiffanie Medrano Authenticated and [facility]
== END 2023-05-31 23:59 ==
PROVIDERS: PCP Physician Assistant; Visit Provider Internal Medicine Rheumatology
DX: G72.49 Other inflammatory and immune myopathies, not elsewhere classified (principal)
CPT/HCPCS: 73718

== ENCOUNTER 2023-06-20 12:52 | Outpatient (CLI) | payer MEDICAID, SELFPAY ==
--- NOTE | 2023-06-20 12:56 | MR_ITS ---
FINAL REPORT CLINICAL HISTORY: sciatic nerve injury w/evidence of reinervation COMPARISON: None FINDINGS: Multiplanar MR imaging of the lumbar spine was performed without contrast. On the sagittal T2-weighted images, there is normal signal throughout the lumbar discs. The vertebrae are of normal height. The vertebral alignment is normal. Note is made of a small L5 vertebral body hemangioma. L1-2: There is no significant canal stenosis or neural foraminal narrowing. L2-3: There is no significant canal stenosis or neural foraminal narrowing. L3-4: There is no significant canal stenosis or neural foraminal narrowing. L4-5: There is no significant canal stenosis or neural foraminal narrowing. L5-S1: There is no significant canal stenosis or neural foraminal narrowing. IMPRESSION: There is no significant canal stenosis or neural foraminal narrowing. Reviewed, Interpreted and Dictated by Zackery Jeong MD Transcribed by Pilar Dejesus Authenticated and [facility]
== END 2023-06-20 23:59 | disposition home or self-care (01) ==
LOC: RAD 12:52
PROVIDERS: PCP Physician Assistant; Visit Provider Physician Assistant
DX: M54.50 Low back pain, unspecified (principal); S74.02XA Injury of sciatic nerve at hip and thigh level, left leg, initial encounter; R60.0 Localized edema
CPT/HCPCS: 72148; 76376

== ENCOUNTER 2023-08-04 16:29 | Observation (INO) | payer MEDICAID, SELFPAY ==
[2023-08-04] VITALS (7 sets, daily range): BP systolic 116–138; BP diastolic 70–88; PULSE 71–96; RESP 18–20; TEMP 36.7–37.3; O2SAT 95–98; BMI 26.4; BMI 25.0
--- NOTE | 2023-08-04 16:45 | PC.NURSE ---
DR BURKS AT BEDSIDE
--- NOTE | 2023-08-04 16:53 | CT_ITS ---
PROCEDURE INFORMATION: Exam: CT Abdomen And Pelvis With Contrast Exam date and time: 08/04/2023 5:38 PM Age: 32 years old Clinical indication: Abdominal pain; Generalized; Additional info: Severe abdo pain and dist, guarding diffusely TECHNIQUE: Imaging protocol: Computed tomography of the abdomen and pelvis with contrast. Radiation optimization: All CT scans at this facility use at least one of these dose optimization techniques: automated exposure control; mA and/or kV adjustment per patient size (includes targeted exams where dose is matched to clinical indication); or iterative reconstruction. Contrast material: ISOVUE; Contrast volume: 75 ml; Contrast route: IV; COMPARISON: 1. CR XR HIP LT 2-3V W/PELVIS 03/22/2023 11:46 AM 2. MR LUMBAR SPINE WO CON 06/20/2023 12:56 PM 3. MR FEMUR LT WO CON 05/31/2023 8:53 AM FINDINGS: Lungs: There is a 5 mm right middle lobe nodule (image 7 series 3). If the patient does not have known cancer, follow up should be based on clinical information because of the low risk of cancer in this age group. (Reference: Jean) Liver: Normal. Gallbladder and bile ducts: No acute process. Pancreas: Normal. Spleen: There are multiple calcifications in the spleen most likely reflects small granulomas. Upper limits of normal-sized spleen. Adrenal glands: The adrenal glands appear normal. Kidneys and ureters: There are no soft tissue renal masses or hydronephrosis. Stomach and bowel: Moderate wall thickening of the transverse colon with mucosal hyperenhancement noted. Appendix: No evidence of appendicitis. Intraperitoneal space: There is small volume ascites. There is severe inflammation of the omentum. Vasculature: The abdominal aorta and its major branches appear normal without evidence of aneurysm or stenosis. There are pelvic phleboliths. Lymph nodes: No lymphadenopathy. Urinary bladder: Unremarkable as visualized. Reproductive: No acute process. Bones/joints: The visualized osseous structures of the abdomen and pelvis appear normal for patient age. Soft tissues: There is bilateral gynecomastia. IMPRESSION: Severe inflammation of the omentum possibly secondary to transverse colitis. REFERENCES: Jean Muñoz et al. Guidelines for Management of Incidental Pulmonary Nodules Detected on CT Images: From the Fleischner Society 2017. Radiology. 2017;284(1):228-243.
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
[2023-08-04] MEDS: 0.9 % SODIUM CHLORIDE 1000ML 1,000 ML 999 ML IV (17:15)
[2023-08-04] MEDS: ACETAMINOPHEN 1,000MG/100ML VIAL 1000 MG IV (17:17)
[2023-08-04] MEDS: METOCLOPRAMIDE HCL 10MG/2ML VIAL 10 MG IVP (17:17)
[2023-08-04] MEDS: KETOROLAC 30MG/ML VIAL 15 MG IV (17:17)
--- NOTE | 2023-08-04 17:30 | PC.NURSE ---
PT TO CT
[2023-08-04 17:32] LABS: VBG Base Excess 5.3 mmol/L (-2.4-2.3); VBG HCO3 28.9 mmol/L (23-30); VBG Oxygen Saturation 97.2 % (50-70); VBG PCO2 40.3 mmol/L (35-51); VBG PH 7.47 mmol/L (7.31-7.41); VBG PO2 86.2 mmol/L (28-40); VBG Total CO2 30.1 mmol/L (23-27)
[2023-08-04 17:33] LABS: Lactate Venous 2.1 mmol/L (0.4-2.0)
[2023-08-04 17:33] LABS: Basophils # 0.1 K/mm3 (0-0.2); Basophils % 1.2 % (0.1-2.0); Eosinophils # 0.4 K/mm3 (0.0-0.4); Hematocrit 51.6 % (42.0-52.0); Hemoglobin 17.2 g/dL (14.1-18.0); Lymphocytes # 1.2 K/mm3 (0.7-4.5); Lymphocytes % 12.8 % (10-50); Mean Corpuscular HGB Conc 33.4 g/dL (31.8-35.4); Mean Corpuscular Hemoglobin 31.1 pg (27.0-31.2); Mean Corpuscular Volume 93.1 fl (80-94); Mean Platelet Volume 7.8 fl (7.4-10.4); Monocytes # 0.8 K/mm3 (0.1-1.0); Monocytes % 8.7 % (1.7-9.3); Neutrophils # 6.9 K/mm3 (1.8-7.8); Neutrophils % 73.3 % (37.0-80.0); Platelet Count 296 K/mm3 (142-424); Red Blood Count 5.54 M/mm3 (4.60-6.20); Red Cell Distribution Width 14.8 % (11.5-17.5); White Blood Count 9.4 K/mm3 (4.8-10.8)
[2023-08-04 17:39] LABS: Chloride 94 mmol/L (98-107); Potassium 4.2 mmoL/L (3.5-5.1); Sodium 130 mmol/L (136-145)
[2023-08-04 17:41] LABS: Alanine Aminotransferase 176 U/L (12-78); Alkaline Phosphatase 111 U/L (38-126); Anion Gap 11.2 mEq/L (5-15); Aspartate Amino Transferase 102 U/L (17-59); Bilirubin,Total 1.2 mg/dl (0.2-1.3); Blood Urea Nitrogen 12 mg/dl (9-20); Carbon Dioxide 29 mmol/L (22.0-30.0); Creatinine Clearance Estimated 227 mL/min (50-200); Estimated Glomerular Filt Rate 156 ml/min (>60); GFR (African American) 189 ML/MIN (>60)
[2023-08-04 17:42] LABS: Albumin Level 3.9 g/dl (3.5-5.0); Albumin/Globulin Ratio 1.1 (1.1-1.8); Calcium 9.6 mg/dl (8.4-10.2); Creatine Kinase 1348 U/L (55-170); Globulin 3.6 g/dL (1.3-3.2); Glucose 132 mg/dl (74-100); Lipase 42 U/L (23-300); Magnesium 2.2 mg/dl (1.6-2.3); Total Protein,Serum 7.5 g/dl (6.3-8.2)
[2023-08-04 17:43] LABS: Lactic Acid 1.2 mmol/L (0.7-2.1); Triglycerides 174 mg/dl (30-150)
[2023-08-04] MEDS: SODIUM CHLORIDE 0.9% 10ML SYR (RAD ONLY) 10 ML IV (17:43)
[2023-08-04] MEDS: IOPAMIDOL-370 (76%);100ML BOTTLE 75 ML IV (17:43)
[2023-08-04 17:44] LABS: Ethyl Alcohol < 10 mg/dl (0-10); Salicylate < 1.0 mg/dL (2.0-20.0)
[2023-08-04 17:58] LABS: Troponin I < 0.01 ng/ml (0.00-0.034)
[2023-08-04 17:59] LABS: T4 (Thyroxine) 6.7 ug/dl (5.53-11.0)
[2023-08-04 18:13] LABS: Thyroid Stimulating Hormone 3.22 uIU/mL (0.465-4.68)
[2023-08-04] MEDS: AMPICILLIN SODIUM/SULBACTAM 3 GM in 0.9 % SODIUM CHLORIDE 100 ML IV (18:22)
[2023-08-04 18:24] LABS: Prothrombin Time 19.7 seconds (10.1-12.5)
--- NOTE | 2023-08-04 18:27 | PC.NURSE ---
ROUNDED ON PT. NO QUESTIONS OR CONCERNS VOICED BY PT. CALL LIGHT WITHIN REACH. BED IN LOWEST POSITION.
--- NOTE | 2023-08-04 19:10 | PC.NURSE ---
Dr. Nolasco s/w hospitalist regarding admission
--- NOTE | 2023-08-04 19:12 | PC.NURSE ---
House notified of admission
--- NOTE | 2023-08-04 19:27 | PC.NURSE ---
Nurse to nurse report to Nell MCKEON
--- NOTE | 2023-08-04 19:33 | PC.NURSE ---
While updating patient, patient reports that he does not wish to be admitted. Notified Dr. Nolasco and he went to speak with patient and family at bedside.
--- NOTE | 2023-08-04 19:56 | PC.NURSE ---
Provider spoke with patient, and reports that patient is agreeable to admission at this time. Notified 2nd floor that patient is ready for transport at this time.
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
--- NOTE | 2023-08-04 20:30 | PC.NURSE ---
patient refused labs at this time
--- NOTE | 2023-08-04 20:35 | PC.NURSE ---
attempted to do admission and patient request this RN stop asking questions and stated I'm about to lose my mind . Patient stated he stopped his benzo's and drinking 1/2 pint liquor on Sunday this week. Currently states he is currently smoking 3 packs but refuses a nicotine patch. Alexander GONZALEZ has been notified of the following listed above and requested to come speak with the patient because he is contemplating leaving because he can't go outside and smoke.
--- NOTE | 2023-08-04 21:21 | PC.NURSE ---
Alexander GONZALEZ came and spoke with patient, but verbalizes understanding. Patient stated his mom brought his suboxone in and it was at his bedside - This RN requested suboxone so I could lock it up in drawer for pharmacy to label in morning for him to get tomorrow and he refused and told his mom to take it to the car - mom left room with it and took to car. patient and mom was educated to bring back in the morning so it can be labeled properly for patient use. (med is in a rx bottle)
[2023-08-04 21:33] LABS: Reflex Lactic Add Lactic Reflex
[2023-08-04] MEDS: 0.9 % SODIUM CHLORIDE 1000ML 1,000 ML 125 ML IV (21:40)
[2023-08-04] MEDS: METRONIDAZ/SOD CHL 500 MG/100 ML PIGGYBACK 100 MG IV (21:40)
[2023-08-04] MEDS: PANTOPRAZOLE 40MG VIAL 40 MG IV (21:40)
[2023-08-04 21:51] LABS: Microscopic, Urine URINE MICROSCOPIC (MICROSCOPIC)
[2023-08-04 22:02] LABS: Appearance,Urine CLEAR (Clear); Blood, Urine 2+ (Negative); Color,Urine ORANGE (Yellow); Glucose,Urine (UA) TRACE (Negative); Ketones,Urine Negative (Negative); Leukocyte Esterase,Urine Negative (Negative); Nitrate,Urine POSITIVE (Negative); PH,Urine 5.5 (5.0-8.5); Protein,Urine 2+ (Negative); Urobilinogen,Urine >=8.0 EU/dl (0.2)
[2023-08-04 22:03] LABS: Lactic Acid Follow Up (RFLX 1) 0.8 mmol/L (0.7-2.1)
[2023-08-04 22:06] LABS: Bilirubin,Urine 2+ (Negative)
[2023-08-04 22:17] LABS: Troponin I < 0.01 ng/ml (0.00-0.034)
[2023-08-04 22:17] LABS: Barbiturates Screen,Urine Negative ng/ml (<200)
[2023-08-04 22:18] LABS: Benzodiazepines Screen,Urine Positive ng/ml (<200)
[2023-08-04 22:19] LABS: Amphetamine/Metha Screen,Urine Negative ng/ml (<1000); Cannabinoid Screen,Urine Positive ng/ml (<50)
[2023-08-04 22:20] LABS: Bacteria,Urine Trace /lpf; Cocaine Screen,Urine Negative ng/ml (<300); Methadone Screen,Urine Negative ng/ml (<300); RBC,Urine Occasional #/hpf (0-3); Squamous Epithelial Cell,Urine Occasional #/hpf (0-5)
[2023-08-04 22:21] LABS: Opiate Screen,Urine Negative ng/ml (<300)
[2023-08-04 22:22] LABS: Phencyclidine Screen,Urine Negative ng/ml (<25)
[2023-08-04 23:35] LABS: Basophils # 0.1 K/mm3 (0-0.2); Basophils % 0.9 % (0.1-2.0); Eosinophils % 11.1 % (0.1-12.0); Hematocrit 48.2 % (42.0-52.0); Hemoglobin 16.1 g/dL (14.1-18.0); Lymphocytes # 1.6 K/mm3 (0.7-4.5); Lymphocytes % 17.3 % (10-50); Mean Corpuscular HGB Conc 33.4 g/dL (31.8-35.4); Mean Corpuscular Hemoglobin 30.5 pg (27.0-31.2); Mean Corpuscular Volume 91.3 fl (80-94); Mean Platelet Volume 8.2 fl (7.4-10.4); Monocytes # 0.7 K/mm3 (0.1-1.0); Monocytes % 7.4 % (1.7-9.3); Neutrophils # 5.8 K/mm3 (1.8-7.8); Neutrophils % 63.4 % (37.0-80.0); Platelet Count 291 K/mm3 (142-424); Red Blood Count 5.28 M/mm3 (4.60-6.20); Red Cell Distribution Width 15.1 % (11.5-17.5); White Blood Count 9.1 K/mm3 (4.8-10.8)
[2023-08-04 23:47] LABS: Activated Partial Thrombo Time 40.2 seconds (22.8-30.6)
[2023-08-05 00:09] LABS: Troponin I 0.01 ng/ml (0.00-0.034)
[2023-08-05 00:35] LABS: Vitamin B12 239 pg/mL (239-931)
[2023-08-05 04:00] VITALS: BP 137/80; PULSE 76; RESP 18; TEMP 37.7; O2SAT 96; BMI 25.6
--- NOTE | 2023-08-05 05:27 | PC.NURSE ---
Pt has had no complaints since arriving to floor, pt has been resting throughout the night. CIWA 0. Seizure pads in place. Pt ambulates to the restroom. Remains in personal clothing at request. Abdomen tender, bowel sounds active. Call light in reach.
[2023-08-05] MEDS: METRONIDAZ/SOD CHL 500 MG/100 ML PIGGYBACK 100 MG IV (06:42)
[2023-08-05] MEDS: 0.9 % SODIUM CHLORIDE 1000ML 1,000 ML 125 ML IV (06:42)
[2023-08-05 07:23] LABS: Basophils # 0.1 K/mm3 (0-0.2); Basophils % 0.7 % (0.1-2.0); Eosinophils # 1.1 K/mm3 (0.0-0.4); Eosinophils % 13.8 % (0.1-12.0); Hematocrit 43.5 % (42.0-52.0); Lymphocytes # 1.2 K/mm3 (0.7-4.5); Lymphocytes % 15.4 % (10-50); Mean Corpuscular HGB Conc 33.1 g/dL (31.8-35.4); Mean Corpuscular Hemoglobin 29.9 pg (27.0-31.2); Mean Corpuscular Volume 90.3 fl (80-94); Mean Platelet Volume 8.4 fl (7.4-10.4); Monocytes # 0.6 K/mm3 (0.1-1.0); Monocytes % 7.5 % (1.7-9.3); Neutrophils # 5.1 K/mm3 (1.8-7.8); Neutrophils % 62.5 % (37.0-80.0); Platelet Count 281 K/mm3 (142-424); Red Blood Count 4.81 M/mm3 (4.60-6.20); Red Cell Distribution Width 14.9 % (11.5-17.5); White Blood Count 8.1 K/mm3 (4.8-10.8)
[2023-08-05 07:24] LABS: Chloride 98 mmol/L (98-107)
[2023-08-05 07:25] LABS: Potassium 3.4 mmoL/L (3.5-5.1); Sodium 131 mmol/L (136-145)
[2023-08-05 07:27] LABS: Alanine Aminotransferase 120 U/L (12-78); Alkaline Phosphatase 103 U/L (38-126); Anion Gap 6.4 mEq/L (5-15); Aspartate Amino Transferase 71 U/L (17-59); Bilirubin,Total 0.9 mg/dl (0.2-1.3); Blood Urea Nitrogen 11 mg/dl (9-20); Carbon Dioxide 30 mmol/L (22.0-30.0); Creatinine Clearance Estimated 263 mL/min (50-200); Estimated Glomerular Filt Rate 193 ml/min (>60); GFR (African American) 233 ML/MIN (>60); Triglycerides 188 mg/dl (30-150); VLDL Cholesterol 38 mg/dL (0-40)
[2023-08-05 07:28] LABS: Albumin Level 3.1 g/dl (3.5-5.0); Chol/HDL Ratio 8.2 (1-3.5); Cholesterol 115 mg/dl (140-200); Glucose 108 mg/dl (74-100); HDL Cholesterol 14 mg/dl (40-60); Phosphorous 2.9 mg/dl (2.5-4.5); Total Protein,Serum 6.1 g/dl (6.3-8.2)
[2023-08-05 07:39] LABS: Direct LDL Cholesterol 64.55 mg/dL (100-129)
[2023-08-05 08:00] VITALS: BP 121/65; PULSE 71; RESP 16; TEMP 36.9; O2SAT 97
[2023-08-05 08:24] LABS: Hemoglobin 14.4 g/dL (14.1-18.0)
[2023-08-05] MEDS: FOLIC ACID 1MG TABLET 1 MG PO (08:44)
[2023-08-05] MEDS: THIAMINE 100MG TABLET 100 MG PO (08:44)
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
--- NOTE | 2023-08-05 09:42 | HMH.PHAINT1 ---
Pharmacy Intervention Comments: MEDICATION RECONCILIATION COMPLETE USING EXTERNAL PHARMACY FILL HISTORY, SULMA REPORT, AND MOST RECENT MD OFFICE VISIT NOTE.
[2023-08-05] MEDS: metroNIDAZOLE 500 MG TABLET PO (12:10)
[2023-08-05] MEDS: levoFLOXacin 750 MG TABLET PO (12:10)
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
[2023-08-06 12:28] LABS: HIV Screen 4th Generation wRfx Non Reactive (Non Reactive)
--- NOTE | 2023-08-07 13:44 | CARE MANAGER ---
Attempted to contact patient x2 related to hospital discharge. No VM option. LINDA Hughes
[2023-08-07 20:19] LABS: Neisseria gonorrhoeae, NAA Negative (Negative)
== END 2023-08-05 12:10 | disposition home or self-care (01) ==
LOC: ER 19:14 → 2ND 19:16
PROVIDERS: Nurse Practitioner Family; Admitting Provider Internal Medicine; Emergency Provider Emergency Medicine; PCP Physician Assistant; Visit Provider Internal Medicine
DX: K65.2 Spontaneous bacterial peritonitis (principal); K72.00 Acute and subacute hepatic failure without coma; M62.82 Rhabdomyolysis; F17.210 Nicotine dependence, cigarettes, uncomplicated; Z79.899 Other long term (current) drug therapy; Z79.891 Long term (current) use of opiate analgesic; F10.10 Alcohol abuse, uncomplicated; N50.89 Other specified disorders of the male genital organs
CPT/HCPCS: 36415; 74177; 80053; 80061; 80307; 80320; 80329; 81001; 82550; 82607; 82803; 83605; 83690; 83735; 84100; 84425; 84436; 84443; 84478; 84484; 85025; 85610; 85730; 86703; 87491; 87591; 99291; G0378; G0432; J0131; Q9967